=== PATIENT | female | born 2000 | race Hispanic/Latino ===

== ENCOUNTER 2019-10-22 10:59 | Inpatient (IN) | payer OTHER ==
[2019-10-22] MEDS ORDERED: hydrALAZINE 20 MG/ML VIAL SLOW IVP PRN (19:10)
--- NOTE | 2019-10-22 19:20 | PDOC.FPROB ---
FMR OB H&P: HPI - History of Present Illness Chief Complaint: IOL for SGA Indentification: 19YO @ 37.6 WGA by LMP c/w 13.2 week sono History of Present Illness: 19YO @ 37.6 WGA who presented for a PALLAVI IOL for an SGA fetus. Reports regular movement. Denies any regular ctx, VB, D/C, or LOF. Does endorse some vaginal pain but otherwise, no complaints. Primary Care Physician: SAVANNAH- JIM FMR OB H&P: Current - Care : 1 Para: 0 Gestational age: 37.6 Due date: 11/06/19 Dating Criteria: LMP c/w 13.1 week sono - OB Labs Blood type: A RH: positive Antibody Screen: negative HIV: negative RPR: negative HepBsAg: negative Rubella: immune Urine drug screen: not done Gonorrhea: negative Chlamydia: negative Pap Smear: needs to be done PP as was only 18YO on exam visit 1 hour gtt: 109 GBS: negative H&H: 10.4/30.1 on 08/28/19 Platelets: 175 on 08/28/19 - First Trimester Ultrasound First trimester: sIUP w/ NICCI of 11/06/19 c/w LMP - Anatomy Survey Anatomy survey: EFW 13th percentile with suspected septate uterus - Additional Ultrasound Additional: 24 weeks 530g 6th % 26.1 weeks 811g 16th % 29.1 weeks 1168g 10th % 32.0 weeks 10th % 36.5 weeks 2222g 14th % FMR OB H&P: History - Past Medical History PMH: none - OB History OB History: primagravida - 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 - Surgical History Sx History: None - Social History Social History: No TAD. - Family History Family History: non-contributory FMR OB H&P: Medications - Current Home Medications: Medication Instructions Recorded Confirmed Type Vit37/Iron/Folic Acid 1 tab PO DAILY 10/22/19 10/22/19 History [Prenata Chewable Tablet] Allergies/Adverse Reactions: Allergies Allergy/AdvReac Type Severity Reaction Status Date / Time No Known Allergies Allergy Verified 10/22/19 18:36 FMR OB H&P: ROS - Review of Systems General: denies: fever/chills, fatigue Eyes: denies: vision changes, double vision ENT: denies: nasal congestion, sore throat Cardiovascular: denies: chest pain, edema Gastrointestinal: denies: abdominal pain, nausea, vomiting, diarrhea Genitourinary (Female): reports: vaginal pain. denies: vaginal discharge, vaginal bleeding, contractions Musculoskeletal: denies: pain, swelling Neurologic: denies: headache Integumentary: denies: itching, rash Psychological: denies: depression, anxiety FMR OB H&P: Vital Signs - Maternal Vital signs: BP: 115/71 HR: 81 RR: 16 Temp: 99.2F - Heart Tones Baseline: 135 Variability: moderate Acceleration: present Category: category 1 [place] contractions every: 1 contraction noted in 20 minute NST FMR OB H&P: Physical Exam - Physical Exam General: NAD, awake, alert and oriented HEENT: normocephalic and atraumatic, conjunctiva clear, grossly normal vision, grossly normal hearing, good dention Neck: supple, FROM Heart: RRR, normal S1/S2, no murmurs/rubs/gallops, pulses present, no edema General: CTAB, no respiratory distress, good air movement, no rales/rhonchi, no wheezing Abdomen: gravid, non-tender Musculoskeletal: normal gait and station, FROM in all four extremities Neurological: cranial nerves II through XII intact, sensation to pain,touch and proprioception grossly normal, no focal deficit Skin: no rash, good tugor Psychiatric: intact recent and remote memory, good judgement and insight, normal mood and affect FMR OB H&P: A/P - Problem List (1) Small for gestational age fetus affecting management of mother Status: Acute Code(s): O36.5990 - MATERN CARE FOR OTH OR SUSP POOR FETL GRTH, UNSP TRI, UNSP Qualifiers: Trimester: third trimester (2) Septate uterus Status: Acute Code(s): Q51.20 - OTHER DOUBLING OF UTERUS, UNSPECIFIED (3) Anemia affecting in third trimester Status: Acute Code(s): O99.013 - ANEMIA COMPLICATING , THIRD TRIMESTER Disposition: 19YO @ 37.6 WGA by LMP c/w 13.2 week sono presenting for a PALLAVI IOL for constitutionally small fetus. PALLAVI IOL @ 37.6 WGA for SGA fetus: - Patient has been following with MFM for monthly growth scans since ~24 WGA due to constitutionally small fetus. Recommended delivery at 38-39 WGA but patient is not yet 38 weeks today. Most recent growth scan with MFM on 10/13 shows an EFW of 14th percentile with 8/8 BPP and ARTURO of 16.4. Contradicting growth @ T[facility] on 10/17 in 50th percentile w/ ARTURO of 22 & 8/8 BPP. Due to confounding measurements and early end of recommended induction date will proceed with a repeat growth scan and BPP to reassess necessity of delivery @ 38 WGA vs. in another week @ 39 WGA. Concern for breech presentation: - Last US w/ MFM on 10/13 noted cephalic presentation but nursing staff suspect fetus is now breech. Will assess presentation with growth scan & determine mode of delivery based on presentation as well. SGA fetus: - Aware, most recent growth with MFM & TAMP reported above. Repeat growth scan today to determine IOL plan. Septate uterus: - Aware, has been following with MFM. Anemia in : - Aware, on PNVs & iron. Will get repeat H/H today if patient is admitted for IOL. Dispo: Will admit for delivery today if testing non-reassuring vs. re- scheduling IOL vs. C/S in 1 week pending presentation if US & BPP reassuring/WNLs. Discussion: Date/Time: 10/22/191916 This H&P was discussed with Dr. Hawkins who agrees with the above documentation and plan. Addendum - Attending - Attending Attestation Date/Time: 10/22/192326 I personally evaluated the patient and discussed the management with Dr. Garcia. I agree with the History, Examination, Assessment and Plan documented above with any addition or exceptions noted below. Ultrasound eval demonstrates normal weight, fluid, and 8/8 BPP. Indication for IOL has resolved. Patient to follow with obstetric provider to arrange updated delivery plans.
--- NOTE | 2019-10-22 20:11 | ULT ---
BIOPHYSICAL PROFILE: 10/22/19 tone: Score 2 breathing: Score 2 movement: Score 2 Amniotic fluid: Score 2 Total score: 8/8. position: Vertex. Placenta: Posterior. ARTURO: 21.4 cm. heart rate: 149. POS: AGW
--- NOTE | 2019-10-22 20:16 | ULT ---
OB ULTRASOUND: 10/22/19 HISTORY: Small for gestational age with borderline polyhydramnios. FINDINGS: Viable intrauterine . Gestational age by ultrasound is 37 weeks, 2 days. BPD: 37 week, 0 day. HC: 37 week, 6 day. AC: 37 weeks, 1 day. FL: 36 week, 2 day. EFW: 3103 grams, 39 week, 0 day. Amniotic fluid: ARTURO is increased and recorded at 21.4 cm. heart rate: 149 beats per minute. Placenta: Posterior. Presentation: Vertex. Cervical length: 3.1 cm. Limited anatomy performed. Four chamber heart was visualized along with urinary bladder and three ves lane cord. IMPRESSION: 1. 37 week, 2 day gestation age by ultrasound. 2. Increased amniotic fluid. ARTURO is recorded at 21.4 cm. POS: AGW
--- NOTE | 2019-10-22 23:47 | PDOC.LDPN ---
Labor & Delivery Progress Note - Subjective Subjective: comfortable - Objective Vital signs reviewed and normal: yes General: NAD, resting FHT: category 1 [place] contractions every: 1 contraction on NST noted - Assessment (1) Small for gestational age fetus affecting management of mother Code(s): O36.5990 - MATERN CARE FOR OTH OR SUSP POOR FETL GRTH, UNSP TRI, UNSP Status: Acute Qualifiers: Trimester: third trimester (2) Septate uterus Code(s): Q51.20 - OTHER DOUBLING OF UTERUS, UNSPECIFIED Status: Acute (3) Anemia affecting in third trimester Code(s): O99.013 - ANEMIA COMPLICATING , THIRD TRIMESTER Status: Acute Plan: other -: 19YO @ 37.6 WGA by LMP c/w 13.2 week sono presenting for a [facility] IOL for constitutionally small fetus. [facility] IOL @ 37.6 WGA for SGA fetus: - EFW 3103g @ 39th percentile by [place]. BPP 01/31 with ARTURO of 21.4cm. Cervical length 3.1cm. Vertex presentation with posterior placenta. No longer any indication for delivery prior to 39 WGA. Concern for breech presentation: - cephalic presentation noted on sono today. SGA fetus: - Resolved per EFW obtained today as noted above. Septate uterus: - Aware, has been following with MFM. Anemia in : - Aware, continue PNVs & iron. Dispo: Will d/c home with instructions to return to L&D with signs of labor and/ or ROM. Will call tomorrow to confirm new date & time for IOL @ 39 WGA on .
== END 2019-10-22 20:27 | disposition home health service (06) | DRG 833 ==
LOC: L&D 18:08
PROVIDERS: ADMIT Family Medicine; ATTEND Family Medicine
DX: O36.5930 Maternal care for other known or suspected poor fetal growth, third trimester, not applicable or unspecified (principal); O99.013 Anemia complicating pregnancy, third trimester; D64.9 Anemia, unspecified; O34.03 Maternal care for unspecified congenital malformation of uterus, third trimester; Q51.20 Other doubling of uterus, unspecified; Z3A.37 37 weeks gestation of pregnancy
CPT/HCPCS: 59025; 76805; 76819

== ENCOUNTER 2019-10-30 19:15 | Inpatient (IN) | payer MEDICAID, OTHER, SELFPAY ==
[2019-10-30] MEDS: Lactated Ringer's 1,000 ML IV SCH (19:54)
[2019-10-30 20:00] VITALS: BMI 34.4
[2019-10-30] MEDS ORDERED: Ibuprofen 800 MG TAB PO PRN (20:59)
[2019-10-30] MEDS ORDERED: Lidocaine 1% (PF) 30 ML VIAL SC PRN (20:59)
[2019-10-30] MEDS ORDERED: Promethazine HCl 25 MG/ML VIAL IM PRN (20:59)
[2019-10-30] MEDS ORDERED: Ondansetron PF 4 MG/2 ML Vial IVP PRN (20:59)
[2019-10-30] MEDS ORDERED: hydrALAZINE 20 MG/ML VIAL SLOW IVP PRN (20:59)
[2019-10-30] MEDS ORDERED: Acetaminophen 500 MG TAB PO PRN (20:59)
--- NOTE | 2019-10-30 20:59 | PDOC.FPROB ---
FMR OB H&P: HPI - History of Present Illness Chief Complaint: IOL Indentification: 19yo @ 39wk by LMP/13.2wk sono History of Present Illness: 19yo @ 39wk by LMP/13.2wk sono presents for IOL. Currently denies any contractions, LOF, vaginal bleeding or discharge. Endorses good movement. Has history of constitutionally small fetus, followed by MFM who recommended delivery at 38-39wks. 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 - Family History Family History: HTN and DM FMR OB H&P: Medications - Current Home Medications: Medication Instructions Recorded Confirmed Type Vit37/Iron/Folic Acid 1 tab PO DAILY 10/22/19 10/30/19 History [Prenata Chewable Tablet] Docusate Calcium [Surfak] 240 mg PO BID 30 Days #60 cap 11/02/19 Rx Ferrous Sulfate [Feosol] 325 mg PO BID-WM 30 Days #60 tab 11/02/19 Rx Ibuprofen [Motrin] 800 mg PO Q8HR 30 Days #90 tab 11/02/19 Rx Lanolin Ointment [Lansinoh 0.5 gm TOP PRN PRN 28 Days #2 tube 11/02/19 Rx Ointment] Allergies/Adverse Reactions: Allergies Allergy/AdvReac Type Severity Reaction Status Date / Time No Known Allergies Allergy Verified 10/30/19 19:48 FMR OB H&P: ROS - Review of Systems General: denies: fever/chills, weight/appetite/sleep changes, night sweats Eyes: denies: vision changes ENT: denies: nasal congestion, rhinorrhea Cardiovascular: denies: chest pain, palpitation Respiratory: denies: cough, congestion, shortness of breath Gastrointestinal: denies: abdominal pain, indigestion, nausea, vomiting Genitourinary (Female): denies: vaginal discharge, vaginal pain, vaginal bleeding, contractions Neurologic: denies: numbness Integumentary: denies: rash FMR OB H&P: Vital Signs - Maternal Vital signs: Vital Signs - First Documented Temp Pulse Resp BP 99.6 F 87 18 120/72 10/30/19 19:26 10/30/19 19:26 10/30/19 19:26 10/30/19 19:26 - Heart Tones Baseline: 140 Variability: moderate Acceleration: present Deceleration: absent Category: category 1 [place] contractions every: 4-5min FMR OB H&P: Physical Exam - Physical Exam General: NAD, awake, alert and oriented HEENT: MMM, conjunctiva clear Neck: supple, trachea midline Heart: RRR, normal S1/S2, no murmurs/rubs/gallops, no edema General: CTAB, no respiratory distress, good air movement, no rales/rhonchi, no wheezing Abdomen: soft, gravid, non-tender, bowel sound present Musculoskeletal: FROM in all four extremities Neurological: no focal deficit Skin: no rash Psychiatric: intact recent and remote memory - Pelvic Exam SVE: 50/-3 Rodriguez score: 5 Membranes: intact Presentation: cephalic FMR OB H&P: A/P - Problem List (1) Status: Acute Qualifiers: Weeks of gestation: 39 weeks Qualified Code(s): Z3A.39 - 39 weeks gestation of Disposition: 19yo @ 39wk by LMP/13.2wk sono presents for IOL #IOL - 19yo @ 39wks - Cat 1 strip, accels, no deccels, contractions regularly every 4-5min but not felt by patient - SVE 50/-3, posterior, soft -> Rodriguez 5 - GBS negative - vertex on bedside US, fundal posterior placenta - wilner well, favorable cervix, making change, will cont to monitor and recheck in ~4 hours, consider pit at that time #Constitutionally small fetus - followed by MFM, indication for IOL at 39wks - monitor - h/o uterine septum on US IVF: LR @ 125cc/hr Diet: Ice chips PCP: SAVANNAH Garcia Discussion: Date/Time: 10/30/192058 This H&P was discussed with Dr. Read and Dr. Kumari who agree with the above documentation and plan. Addendum - Attending - Attending Attestation Date/Time: 11/04/191753 I personally evaluated the patient and discussed the management with Dr. Gonzales on 10/30/19. I agree with the History, Examination, Assessment and Plan documented above with any addition or exceptions noted below. 19yo @ 39wk with h/o septate uterus and constitutionally small fetus here for IOL. [place] and dilated already: observe spontaneous labor, augment if fails to change spontaneously.
[2019-10-30 21:21] LABS: Hemoglobin 12.5 g/dL (12.0-16.0); Mean Corpuscular HGB CONC 33.1 g/dL (32.0-36.0); Mean Corpuscular Volume 90.7 fL (78.0-98.0); Mean Platelet Volume 9.1 fL (7.4-10.4); Platelet Count 169 thou/uL (130-400); Red Blood Cell (RBC) Count 4.15 mill/uL (4.20-5.40); White Blood Cell (WBC) Count 7.9 thou/uL (4.8-10.8)
[2019-10-30 22:05] LABS: Syphilis Antibody Nonreactive (Nonreactive); Syphilis Antibody Index 0.02 S/CO (<1.00 Non-Reactive)
[2019-10-30 22:11] LABS: Hep B Surf Ag Non-Reactive S/CO (NonReactive)
--- NOTE | 2019-10-31 02:06 | PDOC.LDPN ---
Labor & Delivery Progress Note - Subjective Subjective: comfortable, no concerns - Objective Vital signs reviewed and normal: yes General: NAD, resting Uterine fundus: non tender SVE: 4/50/-3 FHT: category 1 (accels, no deccels, baseline 130) [place] contractions every: 4-6min - Assessment (1) Current Visit: Yes Status: Acute Qualifiers: Weeks of gestation: 39 weeks Qualified Code(s): Z3A.39 - 39 weeks gestation of Plan: continue plan of care, pitocin for augmentation -: 19yo @ 39.1wk by LMP/13.2wk sono presents for IOL #IOL - 19yo @ 39.1wks - Cat 1 strip, accels, no deccels, contractions regularly every 5-6min but not felt by patient - SVE 3/50/-3, posterior, soft -> Rodriguez 5 - SVE @ 0145 4/50/-3, posterior, soft -> Rodriguez 5 - GBS negative - vertex on bedside US, fundal posterior placenta at admission - start augmentation with pit, cont monitor, recheck ~q2hrs once on pit #Constitutionally small fetus - followed by MFM, indication for IOL at 39wks - monitor - h/o uterine septum on US IVF: LR @ 125cc/hr Diet: Ice chips PCP: SAVANNAH Garcia
[2019-10-31] MEDS ORDERED: NS w/ Oxytocin 10 units 500 ML IV SCH (02:15)
[2019-10-31] MEDS: Lactated Ringer's 1,000 ML IV SCH ×2 (03:39→11:11)
--- NOTE | 2019-10-31 04:32 | PDOC.LDPN ---
Labor & Delivery Progress Note - Subjective Subjective: comfortable, painful contractions, no concerns - Objective Vital signs reviewed and normal: yes General: NAD, resting, breathing through contractions Uterine fundus: non tender SVE: 4/50/-2 FHT: category 1 (accels, no deccels, baseline 120) [place] contractions every: q4min - Assessment (1) Current Visit: Yes Status: Acute Qualifiers: Weeks of gestation: 39 weeks Qualified Code(s): Z3A.39 - 39 weeks gestation of Plan: continue plan of care, pitocin for augmentation -: 19yo @ 39.1wk by LMP/13.2wk sono presents for IOL #IOL - 19yo @ 39.1wks - Cat 1 strip, accels, no deccels, contractions regularly every 4min and increased pain per patient - SVE 3/50/-3, posterior, soft -> Rodriguez 5 - SVE @ 0145 4/50/-3, posterior, soft -> Rodriguez 5, pit started - SVE @ 0400 4/50/-2 - GBS negative - vertex on bedside US, fundal posterior placenta at admission - cont augmentation with pit, cont to monitor, recheck q2hrs #Constitutionally small fetus - followed by MFM, indication for IOL at 39wks - monitor - h/o uterine septum on US IVF: LR @ 125cc/hr Diet: Ice chips PCP: SAVANNAH Garcia
[2019-10-31] MEDS: Butorphanol Tartrate 1 MG/ML VIAL SLOW IVP PRN ×3 (04:59→10:32)
--- NOTE | 2019-10-31 06:37 | PDOC.LDPN ---
Labor & Delivery Progress Note - Subjective Subjective: comfortable, no concerns - Objective Vital signs reviewed and normal: yes General: NAD, resting Uterine fundus: non tender SVE: 70/-2 [place] contractions every: q3-4 - Assessment (1) Current Visit: Yes Status: Acute Qualifiers: Weeks of gestation: 39 weeks Qualified Code(s): Z3A.39 - 39 weeks gestation of Plan: continue plan of care, pitocin for augmentation -: 19yo @ 39.1wk by LMP/13.2wk sono presents for IOL #IOL - 19yo @ 39.1wks - Cat 1 strip, accels, no deccels, contractions every 5-6min - Had run of Cat 2 strip with minimal variability after given stadol, but since improved - SVE 3/50/-3, posterior, soft -> Rodriguez 5 - SVE @ 0145 4/50/-3, posterior, soft -> Rodriguez 5, pit started - SVE @ 0400 4/50/-2 - SVE @ 0615 70/-2, mid-postition -> Rodriguez 8 - GBS negative - vertex on bedside US, fundal posterior placenta at admission - cont augmentation with pit, cont to monitor, recheck SVE q2hrs #Constitutionally small fetus - followed by MFM, indication for IOL at 39wks - monitor - h/o uterine septum on US IVF: LR @ 125cc/hr Diet: Ice chips PCP: SAVANNAH Garcia
--- NOTE | 2019-10-31 08:24 | PDOC.LDPN ---
Labor & Delivery Progress Note - Subjective Subjective: comfortable - Objective Vital signs reviewed and normal: yes General: breathing through contractions Uterine fundus: tender to palpation SVE: /-1 Dilation: 5 Effacement: 100% Station: -1 FHT: category 1 [place] contractions every: 2 minutes - Assessment (1) Current Visit: Yes Status: Acute Qualifiers: Weeks of gestation: 39 weeks Qualified Code(s): Z3A.39 - 39 weeks gestation of (2) Septate uterus Code(s): Q51.20 - OTHER DOUBLING OF UTERUS, UNSPECIFIED Current Visit: No Status: Acute Plan: continue plan of care -: 19yo @ 39.1wk by LMP/13.2wk sono presents for IOL 1. IOL 19yo @ 39.1wks * Cat 1 strip, accels, no deccels, contractions every 2 min * Had run of Cat 2 strip with minimal variability after given stadol, but since improved * SVE * @ 2100 on 10/29, 350/-3, posterior, soft -> Rodriguez 5 * @ 0145 on 10/30, 50/-3, posterior, soft -> Rodriguez 5, pit started * @ 0400 on 10/30, 50/-2 * @ 0615 on 10/30, 70/-2, mid-postition -> Rodriguez 8 * @ 0815 on 10/30, /-1, mid-position, soft * GBS negative * Vertex on bedside US, fundal posterior placenta at admission * Cont augmentation with pit, cont to monitor, recheck SVE q2hrs 2. Constitutionally small fetus Followed by MFM, indication for IOL at 39wks * Will monitor * h/o uterine septum on US IVF: LR @ 125cc/hr Diet: Ice chips PCP: SAVANNAH Garcia ATTENDING ADDENDUM: FHT reviewed reassuring strip. continue pitocin augmentation.
--- NOTE | 2019-10-31 10:38 | PDOC.LDPN ---
Labor & Delivery Progress Note - Subjective Subjective: painful contractions - Objective Vital signs reviewed and normal: yes General: breathing through contractions Uterine fundus: non tender SVE: /-1 Dilation: 5 Effacement: 100% Station: -1 FHT: category 1 [place] contractions every: 2 minutes AROM: clear fluid - Assessment (1) Current Visit: Yes Status: Acute Qualifiers: Weeks of gestation: 39 weeks Qualified Code(s): Z3A.39 - 39 weeks gestation of (2) Septate uterus Code(s): Q51.20 - OTHER DOUBLING OF UTERUS, UNSPECIFIED Current Visit: No Status: Acute Plan: continue plan of care -: 19yo @ 39.1wk by LMP/13.2wk sono presents for IOL 1. IOL 19yo @ 39.1wks * Cat 1 strip, accels, no deccels, contractions every 2 min * Had run of Cat 2 strip with minimal variability after given stadol, but since improved * SVE * @ 2100 on 10/29, 50/-3, posterior, soft -> Rodriguez 5 * @ 0145 on 10/30, /-3, posterior, soft -> Rodriguez 5, pit started * @ 0400 on 10/30, /-2 * @ 0615 on 10/30, /-2, mid-postition -> Rodriguez 8 * @ 0815 on 10/30, /-1, mid-position, soft * @ 1020 on 10/30, /-1, AROM- clear fluid, head engaged * GBS negative * Vertex on bedside US, fundal posterior placenta at admission * Cont augmentation with pit, cont to monitor, recheck SVE q2hrs 2. Constitutionally small fetus Followed by MFM, indication for IOL at 39wks * Will monitor * h/o uterine septum on US IVF: LR @ 125cc/hr Diet: Ice chips PCP: SAVANNAH - Jose
[2019-10-31] MEDS ORDERED: Fentanyl 4 mcg/Bup 0.1% Cadd 100 ML ONE (10:51)
[2019-10-31] MEDS ORDERED: Fentanyl 100 MCG/2 ML VIAL ONE (11:43)
[2019-10-31] MEDS ORDERED: Bupivacaine 0.5% 10 ML VIAL ONE (11:43)
[2019-10-31] MEDS ORDERED: Naloxone HCl 0.4 mg/ml Vial IVP PRN ×2 (12:11)
[2019-10-31] MEDS ORDERED: EPHEDRINE 25 MG/5 ML SYRINGE SLOW IVP PRN (12:11)
[2019-10-31] MEDS ORDERED: Ondansetron PF 4 MG/2 ML Vial IVP PRN (12:11)
[2019-10-31] MEDS ORDERED: Acetaminophen 325 MG TAB PO PRN (12:11)
[2019-10-31] MEDS ORDERED: Lactated Ringer's 500 ML IV PRN (12:11)
[2019-10-31] MEDS ORDERED: Promethazine HCl 25 MG/ML VIAL IM PRN (12:11)
[2019-10-31] MEDS ORDERED: diphenhydrAMINE 50 MG/ML VIAL IVP PRN (12:11)
[2019-10-31] MEDS ORDERED: Bupivacaine 0.25% 10 ML VIAL EPIDURAL ONE (12:12)
[2019-10-31] MEDS ORDERED: Fentanyl 100 MCG/2 ML VIAL I-THECAL ONE (12:12)
[2019-10-31] MEDS ORDERED: Fentanyl 4 mcg/Bupivacaine 0.1% Cassette 100 ML EPIDURAL SCH (12:15)
[2019-10-31] MEDS ORDERED: Communication Order-Pharmacy FS SCH (12:15)
--- NOTE | 2019-10-31 12:30 | PDOC.LDPN ---
Labor & Delivery Progress Note - Subjective Subjective: comfortable - Objective Vital signs reviewed and normal: yes General: NAD, resting Uterine fundus: non tender SVE: 100/0 Dilation: 6 Effacement: 100% Station: 0 FHT: category 1 [place] contractions every: 6 minutes AROM: clear fluid - Assessment (1) Current Visit: Yes Status: Acute Qualifiers: Weeks of gestation: 39 weeks Qualified Code(s): Z3A.39 - 39 weeks gestation of (2) Septate uterus Code(s): Q51.20 - OTHER DOUBLING OF UTERUS, UNSPECIFIED Current Visit: No Status: Acute Plan: continue plan of care -: 19yo @ 39.1wk by LMP/13.2wk sono presents for IOL 1. IOL 19yo @ 39.1wks * Cat 1 strip, accels, no deccels, contractions every 6 min * Had run of Cat 2 strip with minimal variability after given stadol, but since improved * SVE * @ 2100 on 10/29, 50/-3, posterior, soft -> Rodriguez 5 * @ 0145 on 10/30, /-3, posterior, soft -> Rodriguez 5, pit started * @ 0400 on 10/30, 50/-2 * @ 0615 on 10/30, /-2, mid-postition -> Rodriguez 8 * @ 0815 on 10/30, /-1, mid-position, soft * @ 1020 on 10/30, /-1, AROM- clear fluid, head engaged * @ 1220 on 10/30, /0 * GBS negative * Vertex on bedside US, fundal posterior placenta at admission * Cont augmentation with pit, cont to monitor, recheck SVE q2hrs 2. Constitutionally small fetus Followed by MFM, indication for IOL at 39wks * Will monitor * h/o uterine septum on US IVF: LR @ 125cc/hr Diet: Ice chips PCP: SAVANNAH Garcia
--- NOTE | 2019-10-31 14:36 | PDOC.LDPN ---
Labor & Delivery Progress Note - Subjective Subjective: comfortable - Objective Vital signs reviewed and normal: yes General: NAD, resting SVE: 9/100/+1 Dilation: 9 Effacement: 100% Station: 1+ FHT: category 1 [place] contractions every: 2 minute AROM: clear fluid - Assessment (1) Current Visit: Yes Status: Acute Qualifiers: Weeks of gestation: 39 weeks Qualified Code(s): Z3A.39 - 39 weeks gestation of (2) Septate uterus Code(s): Q51.20 - OTHER DOUBLING OF UTERUS, UNSPECIFIED Current Visit: No Status: Acute Plan: continue plan of care -: 19yo @ 39.1wk by LMP/13.2wk sono presents for IOL 1. IOL 19yo @ 39.1wks * Cat 1 strip, accels, no deccels, contractions every 6 min * Had run of Cat 2 strip with minimal variability after given stadol, but since improved * SVE * @ 2100 on 10/29, 50/-3, posterior, soft -> Rodriguez 5 * @ 0145 on 10/30, 50/-3, posterior, soft -> Rodriguez 5, pit started * @ 0400 on 10/30, 50/-2 * @ 0615 on 10/30, /-2, mid-postition -> Rodriguez 8 * @ 0815 on 10/30, /-1, mid-position, soft * @ 1020 on 10/30, /-1, AROM- clear fluid, head engaged * @ 1220 on 10/30, 100/0 * @ 0220 on 10/30, 100/0, anterior lip * GBS negative * Vertex on bedside US, fundal posterior placenta at admission * Will labor down and plan for delivery soon. 2. Constitutionally small fetus Followed by MFM, indication for IOL at 39wks * Will monitor * h/o uterine septum on US IVF: LR @ 125cc/hr Diet: Ice chips PCP: SAVANNAH - [place]
[2019-10-31] MEDS: NS / Oxytocin 40 units/1000ml 1,000 ML IV PRN ×2 (16:47→18:56)
--- NOTE | 2019-10-31 17:29 | PDOC.OPDEL ---
OB Operative/Delivery Note Delivery Dr/Surgeon: aRsta Castorena/Meka Pre-Delivery Diagnosis: elective induction Procedure/Post Delivery Dx: spontaneous vaginal delivery Weeks gestation: 39 Anesthesia: epidural - Findings A Sex: female - 1 min: 9 - 5 min: 9 - Additional Findings/Plan Placenta delivered: spontaneous Repaired Obstetrical Laceration: 2nd degree Estimated blood loss: 720 Compilations/Other Findings: Delivering Physician: Rasta Castorena Attending: Meka Procedure: Spontaneous Vaginal Delivery Anesthesia: epidural QBL: 720 ml Pre-op Diagnosis: 1. Term intrauterine in labor 2. Anemia of 3. Growth Restriction 4. Uterine Septum Post-op Diagnosis: 1. Term intrauterine , delivered 2. same as above Indications: A 19y/o female presents to L&D for elective induction Delivery Note: This is 19 yo F @ 39.1 wks who delivered a viable F infant at 1628. Following an uneventful antepartum course, a vigorous (sex) was delivered over an intact perineum in the occipitoanterior position. Anterior Shoulder and then remainder of the body delivered. No nuchal cord. The head was held down and mouth and nares were bulb suctioned. Cord clamped after delayed cord clamping and cut and cord blood collected. Placenta delivered intact in the Liang presentation with a 3 vessel cord noted. Fundal massage was performed and the fundus was firm. The cervix and vagina were inspected and found to have a 2nd degree perineal & Right labial laceration noted and repaired with 3-0 Vicryl suture in the usual fashion with good approximation and hemostasis. Infant went to nursery in good condition for routine care. Apgars were 9/9 at 1 & 5 minutes, respectively. Patient tolerated delivery well and went to after routine recovery/care. ATTENDING ATTESTATION: I was present for and supervised the entire delivery and laceration repair. I agree with the above documentation. Post delivery plan: routine recovery
[2019-10-31] MEDS ORDERED: Milk Of Magnesia 30 ML UDCUP PO PRN (18:40)
[2019-10-31] MEDS ORDERED: Methylergonovine 0.2 MG/ML VIAL IM PRN (18:40)
[2019-10-31] MEDS ORDERED: diphenhydrAMINE 25 MG CAP PO PRN (18:40)
[2019-10-31] MEDS ORDERED: Bisacodyl 10 MG SUPP PR PRN (18:40)
[2019-10-31] MEDS ORDERED: Methylergonovine 0.2 MG TAB PO PRN (18:40)
[2019-10-31] MEDS ORDERED: Misoprostol 200 MCG TAB VAG PRN (18:40)
[2019-10-31] MEDS ORDERED: Lanolin Ointment 7 GM TUBE TOP PRN (18:40)
[2019-10-31] MEDS ORDERED: Preparation H Ointment 28 GM TUBE PR PRN (18:40)
[2019-10-31] MEDS ORDERED: Benzocaine-Menthol 82.5 ML CAN TOP PRN (18:40)
[2019-10-31] MEDS: Dextrose 5%-Lactated Ringers 1,000 ML IV SCH ×2 (20:50→23:55)
[2019-10-31] MEDS: Ibuprofen 800 MG TAB PO SCH (23:37)
[2019-10-31] MEDS: Docusate Calcium (SURFAK) 240 MG CAP PO SCH (23:38)
[2019-11-01] MEDS: Ibuprofen 800 MG TAB PO SCH ×3 (06:24→21:21)
[2019-11-01] MEDS: Dextrose 5%-Lactated Ringers 1,000 ML IV SCH ×3 (06:31→23:57)
--- NOTE | 2019-11-01 06:34 | PDOC.PP ---
Post Progress Note Post Day #: 1 Subjective: She has no complaints. She has minimal bleeding and breast feeding is going well. PO intake tolerated: yes Flatus: yes Ambulation: yes Vital Signs (12 hours) Temp Pulse Resp BP 11/01/19 05:05 98.5 F 72 18 105/57 L 10/31/19 23:35 98.6 F 80 18 100/57 L 10/31/19 20:15 99.2 F 76 18 105/55 L Weight Weight 82.554 kg - Physical Examination General: NAD Cardiovascular: no m/r/g, RRR Respiratory: clear to auscultation bilaterally, non-labored breathing Abdominal: + bowel sounds, lochia, appropriately TTP Extremities: negative homans (B) Skin: no rash Neurological: no gross focal deficits Psychiatric: A&Ox3, normal affect Result Diagrams: 10/30/19 21:08 Additional Labs: Post Labs Blood Type A POSITIVE 10/30/19 22:50 Hep Bs Antigen Non-Reactive S/CO (NonReactive) 10/30/19 21:08 (1) Status: Acute Qualifiers: Weeks of gestation: 39 weeks Qualified Code(s): Z3A.39 - 39 weeks gestation of (2) Septate uterus Code(s): Q51.20 - OTHER DOUBLING OF UTERUS, UNSPECIFIED Status: Acute - Assessment/Plan 19yo @ 39.1wk by LMP/13.2wk myranda presents for IOL 1. PPD#1 * QBL: 820 * 2nd degree perineal lac with R labial tear * Voiding, stooling, eating, and ambulating well. * Minimal lochia with no clots. IVF: SL Diet: Regular PCP: SAVANNAH Garcia Dispo: inpt, LOS > 48H. D/c tomorrow. Addendum - Attending - Attending Attestation Date/Time: 11/01/19 1048 I personally evaluated the patient and discussed the management with Dr. Gonzales. I agree with the History, Examination, Assessment and Plan documented above with any addition or exceptions noted below. Doing well. Moderate swelling along laceration but otherwise healing well. anticipate d/c tomorrow.
[2019-11-01] MEDS: Docusate Calcium (SURFAK) 240 MG CAP PO SCH ×2 (08:49→21:21)
[2019-11-01] MEDS: Ferrous Sulfate 325 MG TAB PO SCH ×2 (08:49→18:19)
[2019-11-01] MEDS: Prenatal Vitamin 1 TAB PO SCH (08:49)
[2019-11-02] MEDS: Ibuprofen 800 MG TAB PO SCH ×2 (05:55→14:00)
--- NOTE | 2019-11-02 06:23 | PDOC.PP ---
Post Progress Note Post Day #: 2 Subjective: She still has some swelling, but the ice packs have helped. She has minimal lochia. PO intake tolerated: yes Flatus: yes Ambulation: yes Vital Signs (12 hours) Temp Pulse Resp BP Pulse Ox 11/01/19 20:13 99.1 F 86 16 115/59 L 98 Weight Weight 82.554 kg - Physical Examination General: NAD Cardiovascular: no m/r/g, RRR Respiratory: clear to auscultation bilaterally, non-labored breathing Abdominal: + bowel sounds, lochia, no distention Extremities: negative homans (B) Skin: CS incision dry & intact Neurological: no gross focal deficits Psychiatric: A&Ox3, normal affect Result Diagrams: 10/30/19 21:08 Additional Labs: Post Labs Blood Type A POSITIVE 10/30/19 22:50 Hep Bs Antigen Non-Reactive S/CO (NonReactive) 10/30/19 21:08 (1) Status: Acute Qualifiers: Weeks of gestation: 39 weeks Qualified Code(s): Z3A.39 - 39 weeks gestation of (2) Septate uterus Code(s): Q51.20 - OTHER DOUBLING OF UTERUS, UNSPECIFIED Status: Acute - Assessment/Plan 19yo @ 39.1wk by LMP/13.2wk myranda presents for IOL 1. PPD#2 * QBL: 820 * 2nd degree perineal lac with R labial tear * Voiding, stooling, eating, and ambulating well. * Minimal lochia with no clots. * Breast feeding well. IVF: SL Diet: Regular PCP: SAVANNAH Garcia Dispo: inpt, LOS > 48H. D/c today. Addendum - Attending - Attending Attestation Date/Time: 11/02/19 0924 I personally evaluated the patient and discussed the management with Dr. Gonzales I agree with the History, Examination, Assessment and Plan documented above with any addition or exceptions noted below. repeat H&H today then d/c home. PO iron and colace sent.
[2019-11-02] MEDS: Docusate Calcium (SURFAK) 240 MG CAP PO SCH (08:26)
[2019-11-02] MEDS: Ferrous Sulfate 325 MG TAB PO SCH (08:26)
[2019-11-02] MEDS: Prenatal Vitamin 1 TAB PO SCH (08:27)
[2019-11-02 10:35] LABS: Hemoglobin 10.1 g/dL (12.0-16.0); Mean Corpuscular HGB CONC 33.1 g/dL (32.0-36.0); Mean Corpuscular Hemoglobin 30.5 pg (27.0-31.0); Mean Corpuscular Volume 92.3 fL (78.0-98.0); Mean Platelet Volume 8.9 fL (7.4-10.4); Platelet Count 161 thou/uL (130-400); RBC Distribution Width 13.1 % (11.5-14.5); Red Blood Cell (RBC) Count 3.29 mill/uL (4.20-5.40); White Blood Cell (WBC) Count 12.7 thou/uL (4.8-10.8)
[2019-11-02 11:53] VITALS: BP 106/64; TEMP 98.4
== END 2019-11-02 15:45 | disposition home or self-care (01) | DRG 807 ==
LOC: L&D 19:19 → 3SE 10-31 20:39
PROVIDERS: ADMIT Family Medicine; ATTEND Family Medicine
PROC: 10E0XZZ Delivery of Products of Conception, External Approach (ICD-10-PCS; principal; 2019-10-31)
PROC: 0KQM0ZZ Repair Perineum Muscle, Open Approach (ICD-10-PCS; 2019-10-31)
PROC: 10907ZC Drainage of Amniotic Fluid, Therapeutic from Products of Conception, Via Natural or Artificial Opening (ICD-10-PCS; 2019-10-31)
DX: O99.02 Anemia complicating childbirth (principal); Z37.0 Single live birth; O70.1 Second degree perineal laceration during delivery; Z3A.39 39 weeks gestation of pregnancy; D64.9 Anemia, unspecified; O34.03 Maternal care for unspecified congenital malformation of uterus, third trimester; Q51.20 Other doubling of uterus, unspecified
CPT/HCPCS: 36415; 51702; 76815; 85027; 86780; 86850; 86900; 86901; 87340; J0595; J2590; J3010; J3490